=== PATIENT | male | born 1990 | race Caucasian/White ===

== ENCOUNTER 2016-12-05 06:45 | Emergency (ER) | payer BC ==
--- NOTE | 2016-12-05 08:12 | XR ---
EXAMINATION TYPE: XR chest 2V DATE OF EXAM: 12/05/2016 COMPARISON: Prior chest x-ray 12/19/2009 HISTORY: Cough and congestion TECHNIQUE: Frontal and lateral views of the chest are obtained on 3 views. FINDINGS: There is no focal air space opacity, pleural effusion, or pneumothorax seen. Ill-defined increased density over the upper left chest on the frontal view may be technical or related to the ch est wall. Old left-sided clavicular fracture is present. The cardiac silhouette size is within normal limits. The osseous structures are intact. IMPRESSION: Possible chest wall abnormality causing abnormal increased attenuation left upper chest. Additional findings above.
--- NOTE | 2016-12-05 08:46 | ED ---
General Adult HPI - General Chief complaint: Upper Respiratory Infection Stated complaint: Chest cold Time Seen by Provider: 12/05/16 07:51 Source: patient Mode of arrival: ambulatory Limitations: no limitations - History of Present Illness Initial comments: 26-year-old male presenting with a two-week history of cough. Patient states cough was initially dry and then progressed over the last 5 days to yellow- green sputum. He denies fever. Patient denies nausea vomiting diarrhea. Denies chest pain. Denies significant shortness of breath. Patient has also complained of a cold sore on his lower lip and a rash on his left thigh. Patient is otherwise healthy with no chronic medical problems. Denies rhinorrhea states he had a mild sore throat and bilateral ear pain as well - Related Data Previous Rx's Medication Instructions Recorded Clotrimazole [Clotrimazole 1%] 1 applic TOPICAL TID #30 ml 12/05/16 Doxycycline [Vibramycin] 100 mg PO Q12HR #28 capsule 12/05/16 Allergies Allergy/AdvReac Type Severity Reaction Status Date / Time cefaclor [From Ceclor] Allergy Rash/Hives Verified 12/05/16 07:55 Review of Systems ROS Statement: Those systems with pertinent positive or pertinent negative responses have been documented in the HPI. ROS Other: All systems not noted in ROS Statement are negative. 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 Organisms: MRSA Date of last positivie culture/infection: Back skin MDRO Source:: 2014 Past Surgical History: Appendectomy Past Anesthesia/Blood Transfusion Reactions: No Reported Reaction Past Psychological History: No Psychological Hx Reported Smoking Status: Never smoker Past Alcohol Use History: Occasional Past Drug Use History: None Reported - Past Family History Mother Family Medical History: Diabetes Mellitus General Exam Limitations: no limitations General appearance: alert, in no apparent distress Head exam: Present: atraumatic, normocephalic Eye exam: Present: normal appearance, PERRL ENT exam: Present: normal exam, mucous membranes moist Neck exam: Present: normal inspection Respiratory exam: Present: normal lung sounds bilaterally. Absent: respiratory distress, wheezes, rales Cardiovascular Exam: Present: regular rate, normal rhythm GI/Abdominal exam: Present: soft. Absent: distended, tenderness Back exam: Present: normal inspection Neurological exam: Present: alert, oriented X3 Psychiatric exam: Present: normal affect, normal mood Skin exam: Present: warm, rash (Patient has tinea corporis on his left lateral thigh, he also has a vesicular rash consistent with herpes on his lower lip.), vesicles Course Vital Signs 12/05/16 12/05/16 06:49 09:31 Temperature 98.0 F 98.4 F Pulse Rate 92 71 Respiratory 18 16 Rate Blood Pressure 141/88 142/93 O2 Sat by Pulse 97 98 Oximetry Medical Decision Making - Medical Decision Making 26-year-old male with a two-week history of cough which is nonproductive of sputum for the past 5 days. Patient is overall well-appearing on examination. He also complains of a cold sore and rash on his thigh. Lip exam consistent with herpes, rash on his thigh consistent with tinea. Patient has had no recent travel. Chest x-ray shows no acute infiltrate, there is a vaguely defined opacity in the left apex. Patient does have remote clavicle fracture. He is aware of these findings will follow-up with his primary care physician. Patient was treated for acute bronchitis. He is also given a prescription for clotrimazole for his tinea corporis. Disposition Clinical Impression: Bronchitis, Tinea corporis Disposition: HOME SELF-CARE Condition: Good Instructions: Tinea Corporis (ED), Upper Respiratory Infection (ED) Prescriptions: Clotrimazole [Clotrimazole 1%] 1 applic TOPICAL TID #30 ml Doxycycline [Vibramycin] 100 mg PO Q12HR #28 capsule Referrals: Mk Edmondson MD [Primary Care Provider] - 1-2 days
[2016-12-05 09:35] VITALS: BP 142/93; PULSE 71; RESP 16; TEMP 98.4
== END 2016-12-05 09:34 | disposition home or self-care (01) ==
LOC: EC 06:45
DX: J40 Bronchitis, not specified as acute or chronic (principal); B35.4 Tinea corporis
CPT/HCPCS: 71020; 99283

== ENCOUNTER → 2018-08-06 | Outpatient (CLI) | payer BC ==
--- NOTE | 2018-08-06 08:11 | US ---
EXAMINATION TYPE: US abdomen limited DATE OF EXAM: 08/06/2018 COMPARISON: NONE CLINICAL HISTORY: R74.8 elevated liver. Elevated liver enzymes EXAM MEASUREMENTS: Liver Length: 18.7 cm Gallbladder Wall: 0.2 cm CBD: 0.4 cm Right Kidney: 11.7 x 5.4 x 6.0 cm Pancreas: visualized portions wnl, limited by overlying midline bowel gas Liver: enlarged, attenuating, increased echogenicity with decreased visualization of vessels suggest karen of fatty infiltrate Gallbladder: wnl Evidence for sonographic Love's sign: no CBD: visualized portions wnl, limited by overlying bowel gas Right Kidney: wnl Visualized portion of pancreas shows no mass or ductal dilatation. Visualized liver is heterogeneousl y hyperechoic. No intrahepatic ductal dilatation is seen. Evaluation for focal masses is suboptimal d ue to the heterogeneity. Gallbladder is seen without shadowing mobile gallstones. Limited images righ t kidney show no gross hydronephrosis. IMPRESSION: Heterogeneous hyperechoic appearance of liver favors product of diffuse fatty infiltratio n, underlying hepatocellular disease is not excluded. Imaging guided random biopsy for tissue analysi s can be performed if desired.
== END | disposition home or self-care (01) ==
LOC: RADUSWWP 07:23
PROVIDERS: ATTEND Family Medicine
DX: R93.2 Abnormal findings on diagnostic imaging of liver and biliary tract (principal); R74.8 Abnormal levels of other serum enzymes
CPT/HCPCS: 76705

== ENCOUNTER → 2019-05-27 | Outpatient (CLI) | payer BC | LOC: LABWHC1 10:50 | PROVIDERS: ATTEND Nurse Practitioner Adult Health | DX: R19.7 Diarrhea, unspecified (principal) | CPT/HCPCS: 87338 ==

== ENCOUNTER → 2019-05-30 | Outpatient (CLI) | payer BC ==
--- NOTE | 2019-05-30 14:57 | CT ---
EXAMINATION TYPE: CT abdomen pelvis wo con DATE OF EXAM: 05/30/2019 COMPARISON: None HISTORY: 29-year-old male Bright red blood after bowel movements. CT DLP: 820.6 mGycm. Automated exposure control for dose reduction was used. TECHNIQUE: Contiguous axial scanning of the abdomen and pelvis without IV contrast. Coronal and sagit sue reconstructions performed. FINDINGS: Heart normal size without pericardial effusion. Lung bases clear without pleural effusion. Liver enlarged at 21.6 cm with low attenuation. Gallbladder, adrenal glands, spleen, and pancreas show no gross abnormality by noncontrast CT. Bilateral extrarenal pelves. No nephrolithiasis or hydronephrosis is seen. No dilated small bowel, free fluid, or free air. Scattered nonenlarged and borderline sized mesenteric lymph nodes measuring up to 7 mm probably react karen. Some prominent fluid filled small bowel loops throughout the mid and lower abdomen. Appendix not discretely identified. No secondary findings of acute appendicitis. Mild scattered stool burden. No pericolonic inflammatory change. Bladder is urine distended. No abnormal fluid collection in the pelvis or pelvic lymphadenopathy. Bones: Right L5 hemisacralization. Mild endplate spondylosis lower thoracic spine. IMPRESSION: 1. Hepatomegaly (21.67 m) with hepatic steatosis. 2. Prominent fluid-filled small bowel loops in the mid and lower abdomen may be transient but could represent enteritis or ileus. 3. Only mild scattered stool. No pericolonic inflammation seen. 4. Incidental total L5 hemisacralization.
== END | disposition home or self-care (01) ==
LOC: RADCTMAIN 14:18
PROVIDERS: ATTEND Family Medicine
DX: K76.0 Fatty (change of) liver, not elsewhere classified (principal); R16.0 Hepatomegaly, not elsewhere classified
CPT/HCPCS: 74176

== ENCOUNTER 2022-06-06 08:31 | Emergency (ER) | payer BC ==
[2022-06-06 08:52] VITALS: RESP 18
--- NOTE | 2022-06-06 09:45 | ED ---
General Adult HPI - General Chief complaint: Chest Pain Stated complaint: dizziness, chest pain, left arm numbness Time Seen by Provider: 06/06/22 08:58 Source: patient Mode of arrival: ambulatory - History of Present Illness Initial comments: Dictation was produced using [employer] dictation software. please excuse any grammatical, word or spelling errors. Chief Complaint: 32-year-old male presents emergency department for the 22nd episode of tinnitus, sharp chest pain and dizziness History of Present Illness: To 32-year-old male woke up very early this morning around 4 AM. Patient states that he gets at this early because he has to be at work at 5. Patient states that he got up when his gurney ready for work when all of a sudden he felt an intense episode of tinnitus followed by dizziness and paresthesias to the left arm. States it lasted for 20 seconds. Patient states that his symptoms immediately resolved. He went to the urgent care and ended up being redirected to the emergency department. Patient is asymptomatic at bedside. Patient has no medical problems. Does not take any medications on a regular basis. Sharp chest pain was located to his left anterior chest. The ROS documented in this emergency department record has been reviewed and confirmed by me. Those systems with pertinent positive or negative responses have been documented in the HPI. All other systems are other negative and/or noncontributory. PHYSICAL EXAM: General Impression: Alert and oriented x3, not in acute distress HEENT: Normocephalic atraumatic, extra-ocular movements intact, pupils equal and reactive to light bilaterally, mucous membranes moist. Cardiovascular: Heart regular rate and rhythm Chest: Able to complete full sentences, no retractions, no tachypnea Abdomen: abdomen soft, non-tender, non-distended, no organomegaly Musculoskeletal: Pulses present and equal in all extremities, no peripheral edema Motor: no focal deficits noted Neurological: CN II-XII grossly intact, no focal motor or sensory deficits noted Skin: Intact with no visualized rashes Psych: Normal affect and mood ED course: 32-year-old male presents emergency department for episode of ear ringing, dizziness, sharp chest pain and paresthesias to the left upper extr emity. As upon arrival are within acceptable limits. Physical examination is benign. Patient has no high-risk features. Nursing notes and chart review was performed EKG interpreted by me: Ventricular rate 86, sinus rhythm,. 149, QRS 105, QTc 384. No NC prolongation, no QTC prolongation, no ST or T-wave changes noted. Overall, this EKG is unremarkable Laboratory evaluation obtained. CBC, coag panel, what is unremarkable. Troponin is negative. Chest x-ray is nonacute. Patient observed in emergency department for 2 hours. Reevaluation at bedside 1040 and found to be stable medical condition. Patient has no high-risk features. Patient be discharged. Was pt. sent in by a medical professional or institution (TIERNEY Ibarra, REAL ESTATE LOAN PROCESSOR, urgent care, hospital, or care home...) When possible be specific @ -Urgent care Did you speak to anyone other than the patient for history (EMS, parent, family, police, friend...)? What history was obtained from this source @ -No Did you review nursing and triage notes (agree or disagree)? Why? @ -I reviewed and agree with nursing and triage notes Were old charts reviewed (outside hosp., previous admission, EMS record, old EKG, old radiological studies, urgent care reports/EKG's, care home records)? Report findings @ -No old charts were reviewed Differential Diagnosis (chest pain, altered mental status, abdominal pain women, abdominal pain men, vaginal bleeding, weakness, fever, dyspnea, syncope, headache, dizziness, GI bleed, back pain, seizure, CVA, palpatations, mental health)? @ -not applicable EKG interpreted by me (3pts min.). @ -As above X-rays interpreted by me (1pt min.). @ -See above CT interpreted by me (1pt min.). @ -None done U/S interpreted by me (1pt. min.). @ -None done What testing was considered but not performed or refused? (CT, X-rays, U/S, labs)? Why? @ -None What meds were considered but not given or refused? Why? @ -Aspirin was considered however patient's symptoms are atypical for ACS Did you discuss the management of the patient with other professionals (professionals i.e. TIERNEY Ibarra, REAL ESTATE LOAN PROCESSOR, lab, RT, psych nurse, health social work professor, director of career resources, teacher, accounts officer, pillowcase sewer)? Give summary @ -No Was smoking cessation discussed for >3mins.? @ -No Was critical care preformed (if so, how long)? @ -No Were there social determinants of health that impacted care today? How? (Homelessness, low income, unemployed, alcoholism, drug addiction, romero sportation, low edu. Level, literacy, decrease access to med. care, fci, rehab)? @ -No Was there de-escalation of care discussed even if they declined (Discuss DNR or withdrawal of care, Hospice)? DNR status @ -No What co-morbidities impacted this encounter? (DM, HTN, Smoking, COPD, CAD, Cancer, CVA, ARF, Chemo, Hep., AIDS, mental health diagnosis, sleep apnea, morbid obesity)? @ -None Was patient admitted / discharged? Hospital course, mention meds given and route, prescriptions, significant lab abnormalities, going to OR and other pertinent info. @ -hospital course Undiagnosed new problem with uncertain prognosis? @ -No Drug Therapy requiring intensive monitoring for toxicity (Heparin, Nitro, Insu huong, Cardizem)? @ -No Were any procedures done? @ -No Diagnosis/symptom? @ -default Acute, or Chronic, or Acute on Chronic? @ -default Uncomplicated (without systemic symptoms) or Complicated (systemic symptoms)? @ -default Side effects of treatment? @ -No Exacerbation, Progression, or Severe Exacerbation? @ -No Poses a threat to life or bodily function? How? (Chest pain, [place], [place], pneumonia, PE, COPD, DKA, ARF, appy, cholecystitis, CVA, Diverticulitis, Homicidal, Suicidal, threat to staff... and all critical care pts) @ -No - Related Data Home Medications Medication Instructions Recorded Confirmed No Known Home Medications 06/06/22 06/06/22 Allergies Allergy/AdvReac Type Severity Reaction Status Date / Time cefaclor [From Ceclor] Allergy Rash/Hives Verified 06/06/22 10:00 Review of Systems ROS Statement: Those systems with pertinent positive or pertinent negative responses have been documented in the HPI. ROS Other: All systems not noted in ROS Statement are negative. 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 Organisms: MRSA Date of last positivie culture/infection: Back skin MDRO Source:: 2014 Past Surgical History: Appendectomy Past Anesthesia/Blood Transfusion Reactions: No Reported Reaction Past Psychological History: No Psychological Hx Reported Smoking Status: Current some day smoker Past Alcohol Use History: Occasional Past Drug Use History: None Reported - Past Family History Mother Family Medical History: Diabetes Mellitus Course Vital Signs 06/06/22 06/06/22 08:50 09:49 Temperature 98.1 F Pulse Rate 88 76 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 ] Respiratory 18 18 Rate Blood Pressure 148/97 147/93 O2 Sat by Pulse 98 98 Oximetry Medical Decision Making - Lab Data Result diagrams: 06/06/22 10:06 06/06/22 10:06 Lab Results 06/06/22 06/06/22 06/06/22 Range/Units 10:06 10:06 10:06 WBC 6.1 (3.8-10.6) k/uL RBC 4.83 (4.30-5.90) m/uL Hgb 15.3 (13.0-17.5) gm/dL Hct 42.8 (39.0-53.0) % MCV 88.7 (80.0-100.0) fL MCH 31.6 (25.0-35.0) pg MCHC 35.7 (31.0-37.0) g/dL RDW 12.0 (11.5-15.5) % Plt Count 238 (150-450) k/uL MPV 8.1 Neutrophils % 59 % Lymphocytes % 32 % Monocytes % 6 % Eosinophils % 2 % Basophils % 1 % Neutrophils # 3.6 (1.3-7.7) k/uL Lymphocytes # 1.9 (1.0-4.8) k/uL Monocytes # 0.4 (0-1.0) k/uL Eosinophils # 0.1 (0-0.7) k/uL Basophils # 0.1 (0-0.2) k/uL PT 10.2 (9.0-12.0) sec INR 1.0 (<1.2) APTT 24.6 (22.0-30.0) sec Sodium 140 (137-145) mmol/L Potassium 4.1 (3.5-5.1) mmol/L Chloride 106 (98-107) mmol/L Carbon Dioxide 25 (22-30) mmol/L Anion Gap 9 mmol/L BUN 10 (9-20) mg/dL Creatinine 0.70 (0.66-1.25) mg/dL Est GFR (CKD-EPI)AfAm >90 (>60 ml/min/1.73 sqM) Est GFR (CKD-EPI)NonAf >90 (>60 ml/min/1.73 sqM) Glucose 92 (74-99) mg/dL Calcium 9.5 (8.4-10.2) mg/dL Magnesium 2.0 (1.6-2.3) mg/dL Total Bilirubin 0.4 (0.2-1.3) mg/dL AST 37 (17-59) U/L ALT 56 H (4-49) U/L Alkaline Phosphatase 59 (38-126) U/L Troponin I (0.000-0.034) ng/mL Total Protein 7.7 (6.3-8.2) g/dL Albumin 4.9 (3.5-5.0) g/dL 06/06/22 Range/Units 10:06 WBC (3.8-10.6) k/uL RBC (4.30-5.90) m/uL Hgb (13.0-17.5) gm/dL Hct (39.0-53.0) % MCV (80.0-100.0) fL MCH (25.0-35.0) pg MCHC (31.0-37.0) g/dL RDW (11.5-15.5) % Plt Count (150-450) k/uL MPV Neutrophils % % Lymphocytes % % Monocytes % % Eosinophils % % Basophils % % Neutrophils # (1.3-7.7) k/uL Lymphocytes # (1.0-4.8) k/uL Monocytes # (0-1.0) k/uL Eosinophils # (0-0.7) k/uL Basophils # (0-0.2) k/uL PT (9.0-12.0) sec INR (<1.2) APTT (22.0-30.0) sec Sodium (137-145) mmol/L Potassium (3.5-5.1) mmol/L Chloride (98-107) mmol/L Carbon Dioxide (22-30) mmol/L Anion Gap mmol/L BUN (9-20) mg/dL Creatinine (0.66-1.25) mg/dL Est GFR (CKD-EPI)AfAm (>60 ml/min/1.73 sqM) Est GFR (CKD-EPI)NonAf (>60 ml/min/1.73 sqM) Glucose (74-99) mg/dL Calcium (8.4-10.2) mg/dL Magnesium (1.6-2.3) mg/dL Total Bilirubin (0.2-1.3) mg/dL AST (17-59) U/L ALT (4-49) U/L Alkaline Phosphatase (38-126) U/L Troponin I <0.012 (0.000-0.034) ng/mL Total Protein (6.3-8.2) g/dL Albumin (3.5-5.0) g/dL Disposition Clinical Impression: Chest pain Disposition: HOME SELF-CARE Condition: Good Instructions (If sedation given, give patient instructions): Chest Pain (ED), Tinnitus (ED) Is patient prescribed a controlled substance at d/c from ED?: No Referrals: Mk Edmondson MD [Primary Care Provider] - 1-2 days Time of Disposition: 10:46
[2022-06-06 10:12] LABS: Basophils # (A) 0.1 k/uL (0-0.2); Basophils % (A) 1 %; Eosinophils # (A) 0.1 k/uL (0-0.7); Eosinophils % (A) 2 %; HCT 42.8 % (39.0-53.0); HGB 15.3 gm/dL (13.0-17.5); Lymphocytes # (A) 1.9 k/uL (1.0-4.8); Lymphocytes % (A) 32 %; MCH 31.6 pg (25.0-35.0); MCHC 35.7 g/dL (31.0-37.0); MCV 88.7 fL (80.0-100.0); Mean Platelet Volume 8.1; Monocytes # (A) 0.4 k/uL (0-1.0); Monocytes % (A) 6 %; Neutrophils # (A) 3.6 k/uL (1.3-7.7); Neutrophils % (A) 59 %; Platelet Count 238 k/uL (150-450); RBC 4.83 m/uL (4.30-5.90); WBC 6.1 k/uL (3.8-10.6)
[2022-06-06 10:22] LABS: Partial Thromboplastin Time 24.6 sec (22.0-30.0); Prothrombin Time 10.2 sec (9.0-12.0)
[2022-06-06 10:24] LABS: ALT 56 U/L (4-49); AST 37 U/L (17-59); African American GFR (CKD) >90 (>60 ml/min/1.73 sqM); Albumin 4.9 g/dL (3.5-5.0); Alkaline Phosphatase 59 U/L (38-126); Anion Gap 9 mmol/L; Blood Urea Nitrogen 10 mg/dL (9-20); Calcium 9.5 mg/dL (8.4-10.2); Carbon Dioxide 25 mmol/L (22-30); Chloride 106 mmol/L (98-107); Glucose 92 mg/dL (74-99); Non-African American GFR(CKD) >90 (>60 ml/min/1.73 sqM); Potassium 4.1 mmol/L (3.5-5.1); Sodium 140 mmol/L (137-145); Total Bilirubin 0.4 mg/dL (0.2-1.3); Total Protein 7.7 g/dL (6.3-8.2)
--- NOTE | 2022-06-06 10:27 | XR ---
EXAMINATION TYPE: XR chest 2V DATE OF EXAM: 06/06/2022 COMPARISON: 12/05/2016 TECHNIQUE: PA and lateral views submitted. HISTORY: Chest pain FINDINGS: The lungs are clear and there is no pneumothorax, pleural effusion, or focal pneumonia. Heart size normal and no overt failure. Osseous structures demonstrate hypertrophic and degenerative changes of the spine. Hypertrophic and degenerative change of the spine. IMPRESSION: 1. No acute process.
[2022-06-06 10:58] VITALS: BP 141/97; PULSE 77; TEMP 98.5
== END 2022-06-06 11:07 | disposition home or self-care (01) ==
LOC: EC 08:31
DX: R07.9 Chest pain, unspecified (principal); F17.200 Nicotine dependence, unspecified, uncomplicated; Z88.1 Allergy status to other antibiotic agents
CPT/HCPCS: 36415; 71046; 80053; 83735; 84484; 85025; 85610; 85730; 93005; 99285

== ENCOUNTER 2022-11-06 07:02 | Emergency (ER) | payer BC ==
[2022-11-06 07:22] VITALS: RESP 18
--- NOTE | 2022-11-06 09:04 | XR ---
EXAMINATION TYPE: XR knee complete RT DATE OF EXAM: 11/06/2022 COMPARISON: NONE HISTORY: 32-year-old male with injury and pain TECHNIQUE: 3 views FINDINGS: Small knee joint effusion. The mechanism appears intact. Mild anterior soft tissue swelling . No acute fracture, subluxation or dislocation seen. IMPRESSION: No acute osseous abnormality seen. There is a small knee joint effusion which may be reactive. If juan alberto n persists or concern for internal derangement, MRI can be performed.
--- NOTE | 2022-11-06 09:06 | ED ---
Lower Extremity Injury HPI - General Chief Complaint: Extremity Injury, Lower Stated Complaint: RIGHT LEG INJURY Time Seen by Provider: 11/06/22 08:46 Source: patient, RN notes reviewed Mode of arrival: ambulatory Limitations: no limitations - History of Present Illness Initial Comments: Patient is a pleasant 32-year-old male presenting to the emergency room with complaints of right knee stiffness, pain and swelling which began shortly after a failed attempt of a front flip on a trampoline yesterday evening. He reports that the time of the event his knee buckled and he heard a popping sensation. He denies any range of motion impairment but does state that range of motion especially extension is painful. He reports previous hockey injury with significant knee effusion but no previous fractures or structural damage to his knee. He denies any injury to any other extremity, head trauma or loss of consciousness. He has a past medical history significant for Erb's palsy. - Related Data Home Medications Medication Instructions Recorded Confirmed No Known Home Medications 06/06/22 06/06/22 Allergies Allergy/AdvReac Type Severity Reaction Status Date / Time cefaclor [From Ceclor] Allergy Rash/Hives Verified 11/06/22 07:22 Review of Systems ROS Statement: Those systems with pertinent positive or pertinent negative responses have been documented in the HPI. ROS Other: All systems not noted in ROS Statement are negative. 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 Organisms: MRSA Date of last positivie culture/infection: Back skin MDRO Source:: 2014 Past Surgical History: Appendectomy Past Anesthesia/Blood Transfusion Reactions: No Reported Reaction Past Psychological History: No Psychological Hx Reported Smoking Status: Current some day smoker Past Alcohol Use History: Occasional Past Drug Use History: None Reported - Past Family History Mother Family Medical History: Diabetes Mellitus General Exam Limitations: no limitations General appearance: alert, in no apparent distress Head exam: Present: atraumatic, normocephalic, normal inspection Eye exam: Present: normal appearance, PERRL, EOMI. Absent: scleral icterus, conjunctival injection, periorbital swelling ENT exam: Present: normal exam, mucous membranes moist Neck exam: Present: normal inspection, full ROM Respiratory exam: Absent: respiratory distress, accessory muscle use Cardiovascular Exam: Present: regular rate GI/Abdominal exam: Absent: distended Right Knee exam: Present: full ROM, tenderness, swelling, erythema, full knee extension. Absent: abrasion, laceration, ecchymosis, deformity, crepitus, dislocation Neurovascular tendon exam: Present: no vascular compromise Gait: observed and normal Back exam: Present: normal inspection, full ROM Neurological exam: Present: alert, oriented X3, CN II-XII intact Psychiatric exam: Present: normal affect, normal mood Skin exam: Present: warm, dry, intact, erythema (Mild erythema near her right knee). Absent: rash Course Vital Signs 11/06/22 11/06/22 07:20 10:07 Temperature 98.2 F 97.4 F L Pulse Rate 87 77 Respiratory 18 18 Rate Blood Pressure 156/97 138/96 O2 Sat by Pulse 99 97 Oximetry Medical Decision Making - Medical Decision Making Was pt. sent in by a medical professional or institution (, PA, WATCH ENGINEER, urgent care, hospital, or prison...) When possible be specific @ -No Did you speak to anyone other than the patient for history (EMS, parent, family, police, friend...)? What history was obtained from this source @ -No Did you review nursing and triage notes (agree or disagree)? Why? @ -I reviewed and agree with nursing and triage notes Were old charts reviewed (outside hosp., previous admission, EMS record, old EKG, old radiological studies, urgent care reports/EKG's, prison records)? Report findings @ -No old charts were reviewed Differential Diagnosis (chest pain, altered mental status, abdominal pain women, abdominal pain men, vaginal bleeding, weakness, fever, dyspnea, syncope, headache, dizziness, GI bleed, back pain, seizure, CVA, palpatations, mental health, musculoskeletal)? @ -Differential Musculoskeletal Muscular strain, contusion, ligament sprain, fracture, arthritis, septic arthritis, bursitis, cellulitis, muscle spasm, nerve compression, DVT, arterial occlusion, herpes zoster, electrolyte abnormality, tumor.... This is not meant to be in all inclusive list EKG interpreted by me (3pts min.). @ -None done X-rays interpreted by me (1pt min.). @ -X-ray right knee: Small effusion, no fracture or dislocation. CT interpreted by me (1pt min.). @ -None done U/S interpreted by me (1pt. min.). @ -None done What testing was considered but not performed or refused? (CT, X-rays, U/S, labs)? Why? @ -None What meds were considered but not given or refused? Why? @ -Analgesics offered and declined Did you discuss the management of the patient with other professionals (professionals i.e. , PA, WATCH ENGINEER, lab, RT, psych nurse, public health social worker, chemists, teacher, licensed mortgage loan officer, case advocate)? Give summary @ -No Was smoking cessation discussed for >3mins.? @ -No Was critical care preformed (if so, how long)? @ -No Were there social determinants of health that impacted care today? How? (Homelessness, low income, unemployed, alcoholism, drug addiction, transportation, low edu. Level, literacy, decrease access to med. care, detention, rehab)? @ -No Was there de-escalation of care discussed even if they declined (Discuss DNR or withdrawal of care, Hospice)? DNR status @ -No What co-morbidities impacted this encounter? (DM, HTN, Smoking, COPD, CAD, Cancer, CVA, ARF, Chemo, Hep., AIDS, mental health diagnosis, sleep apnea, morbid obesity)? @ -None Was patient admitted / discharged? Hospital course, mention meds given and route, prescriptions, significant lab abnormalities, going to OR and other pertinent info. @ -32-year-old male presenting to the emergency room complaints of right knee pain and swelling that began after hearing a pop sensation and landing awkwardly on his knee yesterday which improved after playing with his children. He reports painful but full range of motion. He denies any point tenderness. Will obtain x-ray of knee; he denies any analgesic needs. X-ray of right knee negative for acute osseous pathology small knee effusion noted. Recommend follow-up in 7-10 days if continued pain and swelling. Advised rest, ice, support with knee brace or Jax wrap along with elevation when possible. Advised [id number] Tylenol or Motrin as needed pain encouraged avoidance of high impact activity such as running and jumping until resolution of knee pain. Questions and concerns answered. Return parameters to the emergency room discussed. Will discharge home in stable condition with conservative management of right knee pain and follow-up with patient's primary care provider. Undiagnosed new problem with uncertain prognosis? @ -No Drug Therapy requiring intensive monitoring for toxicity (Heparin, Nitro, Insulin, Cardizem)? @ -No Were any procedures done? @ -No Diagnosis/symptom? @ -Right knee pain Acute, or Chronic, or Acute on Chronic? @ -Acute Uncomplicated (without systemic symptoms) or Complicated (systemic symptoms)? @ -Uncomplicated Side effects of treatment? @ -No Exacerbation, Progression, or Severe Exacerbation? @ -No Poses a threat to life or bodily function? How? (Chest pain, [place], [place], pneumonia, PE, COPD, DKA, ARF, appy, cholecystitis, CVA, Diverticulitis, Homicidal, Suicidal, threat to staff... and all critical care pts) @ -No Case discussed with Dr. John. - Radiology Data Radiology results: report reviewed, image reviewed Disposition Clinical Impression: Right knee sprain Disposition: HOME SELF-CARE Condition: Stable Instructions (If sedation given, give patient instructions): Knee Sprain (ED) Additional Instructions: Rest joint when possible. Apply ice for the first 48 hours as needed for pain after injury then may utilize heat as well. Utilize Tylenol or Motrin [id number] for pain as needed. Using a supportive brace or Jax wrap is encouraged. Elevate knee when possible. Please follow-up with your primary care provider. Repeat imaging may be needed if continued pain and swelling in 7-10 days. Please return to the Emergency Department if symptoms worsen or any other concerns. Is patient prescribed a controlled substance at d/c from ED?: No Referrals: Mk Edmondson MD [Primary Care Provider] - 1-2 days Time of Disposition: 09:41
[2022-11-06 10:09] VITALS: BP 138/96; PULSE 77; TEMP 97.4
== END 2022-11-06 10:08 | disposition home or self-care (01) ==
LOC: EC 07:02
DX: S83.91XA Sprain of unspecified site of right knee, initial encounter (principal); F17.200 Nicotine dependence, unspecified, uncomplicated; Z88.1 Allergy status to other antibiotic agents; X50.1XXA Overexertion from prolonged static or awkward postures, initial encounter; Y93.44 Activity, trampolining
CPT/HCPCS: 99283

== ENCOUNTER 2023-07-27 12:08 | Emergency (ER) | payer BC ==
[2023-07-27 12:45] VITALS: RESP 18
--- NOTE | 2023-07-27 13:18 | ED ---
Chest Pain HPI - General Chief Complaint: Chest Pain Stated Complaint: Chest Pains Time Seen by Provider: 07/27/23 12:39 Source: patient, RN notes reviewed, old records reviewed Mode of arrival: ambulatory Limitations: no limitations - History of Present Illness Initial Comments: This is a 33-year-old male with chest pain bilateral lower extremity pain tingling chest pain shortness of breath episodic chest pain. Symptoms are relatively persistent here in the emergency department patient having persistent chest pain here in the ER although improving. Mild nausea no vomiting no travel history no sick contacts no fevers cough or congestion. MD Complaint: chest pain, other (Shortness of breath) -: days(s) Onset: during rest, during exertion Pain Location: substernal, left chest Pain Radiation: none Severity: moderate Severity scale (1-10): 4 Quality: aching, heaviness Consistency: constant Improves With: nothing Worsens With: nothing Anginal Symptoms: nausea Other Symptoms: cough, palpitations Treatments Prior to Arrival: none - Related Data Previous Rx's Medication Instructions Recorded lisinopriL [Prinivil] 10 mg PO DAILY #30 tab 07/27/23 Allergies Allergy/AdvReac Type Severity Reaction Status Date / Time cefaclor [From Ceclor] Allergy Rash/Hives Verified 07/27/23 13:09 Review of Systems ROS Statement: Those systems with pertinent positive or pertinent negative responses have been documented in the HPI. ROS Other: All systems not noted in ROS Statement are negative. 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 Organisms: MRSA Date of last positivie culture/infection: Back skin MDRO Source:: 2014 Past Surgical History: Appendectomy Past Anesthesia/Blood Transfusion Reactions: No Reported Reaction Past Psychological History: No Psychological Hx Reported Smoking Status: Current some day smoker Past Alcohol Use History: Occasional Past Drug Use History: None Reported - Past Family History Mother Family Medical History: Diabetes Mellitus General Exam Limitations: no limitations General appearance: alert, in no apparent distress Head exam: Present: atraumatic, normocephalic, normal inspection Eye exam: Present: normal appearance, PERRL, EOMI. Absent: scleral icterus, conjunctival injection, periorbital swelling ENT exam: Present: normal exam, mucous membranes moist Neck exam: Present: normal inspection. Absent: tenderness, meningismus, lymphadenopathy Respiratory exam: Present: normal lung sounds bilaterally. Absent: respiratory distress, wheezes, rales, rhonchi, stridor Cardiovascular Exam: Present: regular rate, normal rhythm, normal heart sounds. Absent: systolic murmur, diastolic murmur, rubs, gallop, clicks GI/Abdominal exam: Present: soft, normal bowel sounds. Absent: distended, tenderness, guarding, rebound, rigid Extremities exam: Present: normal inspection, full ROM, normal capillary refill. Absent: tenderness, pedal edema, joint swelling, calf tenderness Back exam: Present: normal inspection Neurological exam: Present: alert, oriented X3, CN II-XII intact Psychiatric exam: Present: normal affect, normal mood Skin exam: Present: warm, dry, intact, normal color. Absent: rash Course Vital Signs 07/27/23 07/27/23 12:12 15:09 Temperature 98.3 F 97.6 F Pulse Rate 69 78 Respiratory 18 18 Rate Blood Pressure 181/109 143/102 O2 Sat by Pulse 99 99 Oximetry - Reevaluation(s) Reevaluation #1: Medical records reviewed Reevaluation #2: Patient symptoms unchanged Reevaluation #3: Patient informed of results questions answered Reevaluation #4: 08/02/23 22:32 Was pt. sent in by a medical professional or institution (, PA, ELECTRICAL ASSEMBLIES SUPERVISOR, urgent care, hospital, or senior living...) When possible be specific @ -no Did you speak to anyone other than the patient for history (EMS, parent, family, police, friend...)? What history was obtained from this source @ -no Did you review nursing and triage notes (agree or disagree)? Why? @ -agree Are old charts reviewed (outside hosp., previous admission, EMS record, old EKG, old radiological studies, urgent care reports/EKG's, senior living records)? Report findings @ -yes Differential Diagnosis (chest pain, altered mental status, abdominal pain women, abdominal pain men, vaginal bleeding, weakness, fever, dyspnea, syncope, headache, dizziness, GI bleed, back pain, seizure, CVA, palpatations, mental health, musculoskeletal)? @ -prior EKG interpreted by me (3pts min.). @ -yes X-rays interpreted by me (1pt min.). @ -yes negative for acute disease CT interpreted by me (1pt min.). @ -no U/S interpreted by me (1pt. min.). @ -no What testing was considered but not performed or refused? (CT, X-rays, U/S, labs)? Why? @ -none What meds were considered but not given or refused? Why? @ -none Did you discuss the management of the patient with other professionals (professionals i.e. DrCarley, PA, ELECTRICAL ASSEMBLIES SUPERVISOR, lab, RT, psych nurse, social human services assistants, pigment weigher, teacher, executive vice president and chief operating officer, case management director)? Give summary @ -no Was smoking cessation discussed for >3mins.? @ -no Was critical care preformed (if so, how long)? @ -no Were there social determinants of health that impacted care today? How? (Homelessness, low income, unemployed, alcoholism, drug addiction, transportation, low edu. Level, literacy, decrease access to med. care, [facility], rehab)? @ -none Was there de-escalation of care discussed even if they declined (Discuss DNR or withdrawal of care, Hospice)? DNR status @ -no What co-morbidities impacted this encounter? (DM, HTN, Smoking, COPD, CAD, Cancer, CVA, ARF, Chemo, Hep., AIDS, mental health diagnosis, sleep apnea, morbid obesity)? @ -none Was patient admitted / discharged? Hospital course, mention meds given and route, prescriptions, significant lab abnormalities, going to OR and other pertinent info. @ - 33 male presenting with chest pain. Atypical chest pain. No travel history or sick contacts. Pain is well-controlled here in the ER patient can be discharged home Discharge Undiagnosed new problem with uncertain prognosis? @ -no Drug Therapy requiring intensive monitoring for toxicity (Heparin, Nitro, Insulin, Cardizem)? @ -no Were any procedures done? @ -no Diagnosis/symptom? @ -Chest pain Acute, or Chronic, or Acute on Chronic? @ -Acute Uncomplicated (without systemic symptoms) or Complicated (systemic symptoms)? @ -Complicated Side effects of treatment? @ -no Exacerbation, Progression, or Severe Exacerbation? @ -exacerbation Poses a threat to life or bodily function? How? (Chest pain, [place], [place], pneumonia, PE, COPD, DKA, ARF, appy, cholecystitis, CVA, Diverticulitis, Homicidal, Suicidal, threat to staff... and all critical care pts) @ -yes with cause of chest pain Reevaluation #5: Differential Chest Pain: Stable Angina, Unstable Angina, STEMI, NSTEMI Aortic Dissection, Pneumothorax, Musculoskeletal, Esophageal Spasm GERD, Cholecystitis, Pancreatitis, Zoster, this is not meant to be an all-inclusive list. Chest Pain MDM - MDM 33 male presenting with chest pain. Atypical chest pain. No travel history or sick contacts. Pain is well-controlled here in the ER patient can be discharged home Disposition Clinical Impression: Atypical chest pain, Chest pain Disposition: HOME SELF-CARE Condition: Good Instructions (If sedation given, give patient instructions): Chest Pain (ED) Prescriptions: lisinopriL [Prinivil] 10 mg PO DAILY #30 tab Is patient prescribed a controlled substance at d/c from ED?: No Referrals: Mk Edmondson MD [Primary Care Provider] - 1-2 days Time of Disposition: 14:30
[2023-07-27 13:26] LABS: Basophils # (A) 0.1 k/uL (0-0.2); Basophils % (A) 1 %; Eosinophils # (A) 0.1 k/uL (0-0.7); Eosinophils % (A) 2 %; HCT 44.5 % (39.0-53.0); HGB 15.2 gm/dL (13.0-17.5); Lymphocytes # (A) 2.1 k/uL (1.0-4.8); Lymphocytes % (A) 32 %; MCH 31.9 pg (25.0-35.0); MCHC 34.1 g/dL (31.0-37.0); MCV 93.4 fL (80.0-100.0); Mean Platelet Volume 8.5; Monocytes # (A) 0.3 k/uL (0-1.0); Monocytes % (A) 4 %; Neutrophils % (A) 61 %; Platelet Count 194 k/uL (150-450); RBC 4.77 m/uL (4.30-5.90); RDW 11.6 % (11.5-15.5); WBC 6.6 k/uL (3.8-10.6)
[2023-07-27 13:37] LABS: ALT 63 U/L (4-49); AST 47 U/L (17-59); African American GFR (CKD) >90 (>60 ml/min/1.73 sqM); Albumin 4.9 g/dL (3.5-5.0); Alkaline Phosphatase 67 U/L (38-126); Anion Gap 9 mmol/L; Blood Urea Nitrogen 12 mg/dL (9-20); Calcium 9.6 mg/dL (8.4-10.2); Carbon Dioxide 23 mmol/L (22-30); Chloride 108 mmol/L (98-107); Glucose 109 mg/dL (74-99); Lipase 30 U/L (23-300); Non-African American GFR(CKD) >90 (>60 ml/min/1.73 sqM); Potassium 4.1 mmol/L (3.5-5.1); Sodium 140 mmol/L (137-145); Total Bilirubin 0.8 mg/dL (0.2-1.3); Total Protein 7.8 g/dL (6.3-8.2)
[2023-07-27 13:46] LABS: NT-Pro-B-Type Natriuretic Pept 26 pg/mL
[2023-07-27 13:47] LABS: Partial Thromboplastin Time 24.9 sec (22.0-30.0); Prothrombin Time 10.7 sec (10.0-12.5)
--- NOTE | 2023-07-27 13:52 | XR ---
EXAMINATION TYPE: XR chest 2V DATE OF EXAM: 07/27/2023 1:40 PM CLINICAL INDICATION:Male, 33 years old with history of Chest Pain; COMPARISON: Chest radiographs from 06/06/2022 TECHNIQUE: XR chest 2V Frontal and lateral views of the chest. FINDINGS: Lungs/Pleura: There is no evidence of pleural effusion, focal consolidation, or pneumothorax. Pulmonary vascularity: Unremarkable. Heart/mediastinum: Cardiomediastinal silhouette is unremarkable. Musculoskeletal: No acute osseous pathology. Other findings: None IMPRESSION: No acute cardiopulmonary disease/process.
[2023-07-27 15:30] VITALS: BP 143/102; PULSE 78; TEMP 97.6
== END 2023-07-27 15:10 | disposition home or self-care (01) ==
LOC: EC 12:08
DX: R07.89 Other chest pain (principal); F17.200 Nicotine dependence, unspecified, uncomplicated; Z88.1 Allergy status to other antibiotic agents
CPT/HCPCS: 36415; 71046; 80053; 83690; 83735; 83880; 84484; 85025; 85379; 85610; 85730; 93005; 99285

== ENCOUNTER → 2023-09-22 | Outpatient (CLI) | payer BC ==
--- NOTE | 2023-09-25 12:57 | MR ---
MRI CERVICAL SPINE: CLINICAL HISTORY: Neck pain, LUE radiculopathy. Cervical region radiculopathy. TECHNIQUE: Multiplanar, multisequence imaging of the cervical spine is performed without IV contrast. COMPARISON: None. FINDINGS: Sagittal images of the cervical spine show the craniocervical junction to appear within nor mal limits. The cervical and upper thoracic spinal cord is normal in course, caliber, and signal. V ertebral alignment is straightened. The vertebral body and intravertebral disk heights are normal. The bone marrow signal intensity is within normal limits. Axial images show C2-C3 level to appear within normal limits. Axial images at C3-C4 level shows broad-based posterior disc protrusion effacing anterior thecal sac and causing mild to moderate bilateral neural foraminal narrowing. Axial images at C4-C5 levels show broad-based posterior disc protrusion effacing the anterior thecal sac and causing moderate right and mild left-sided neural foraminal narrowing. Axial images at C5-C6 level shows broad-based posterior disc protrusion with slightly more prominent right paracentral/foraminal component effacing the anterior thecal sac and causing moderate to advanc ed left greater than right bilateral neural foraminal narrowing. Axial images at C6-C7 level shows central disc protrusion effacing anterior thecal sac and causing mi ld left greater than right bilateral neural foraminal narrowing Axial images at C7-T1 level appear within normal limits. IMPRESSION: Straightening of cervical spine with multilevel degenerative change as detailed above.
== END | disposition home or self-care (01) ==
LOC: RADMRIMAIN 12:57
PROVIDERS: ATTEND Family Medicine
DX: M47.22 Other spondylosis with radiculopathy, cervical region (principal)
CPT/HCPCS: 72141

== ENCOUNTER 2024-01-20 02:42 | Emergency (ER) | payer BC ==
[2024-01-20] MEDS ORDERED: cefTRIAXone 2 GM VIAL ONE (03:16)
[2024-01-20] MEDS ORDERED: KETOROLAC 15 MG/ML 1 ML VIAL ONE (03:17)
[2024-01-20] MEDS ORDERED: SODIUM CHLORIDE 0.9% 1,000 ML BAG ONE (03:42)
[2024-01-20] MEDS ORDERED: VANCOMYCIN 1,000 MG VIAL ONE (04:25)
[2024-01-20] MEDS ORDERED: VANCOMYCIN 500 MG VIAL ONE (04:25)
[2024-01-20] MEDS ORDERED: SODIUM CHLORIDE 0.9% 250 ML BAG ONE (04:25)
[2024-01-20] MEDS ORDERED: SULFAMETHOX-TMP 800-160MG 1 EACH TAB ONE (06:02)
[2024-01-20] MEDS ORDERED: AMOXIC-POT CLAV 875-125MG 1 EACH TAB ONE (06:02)
[2024-01-20] MEDS ORDERED: traMADol 50 MG STARTER PACK 3 TAB BTL ONE (06:57)
[2024-01-20] MEDS ORDERED: traMADol 50 MG TAB ONE (06:57)
--- NOTE | 2024-02-29 14:08 | XR ---
EXAM: XR Left Ankle Complete, 3 or More Views CLINICAL HISTORY: ankle quinn, infected ankle, no recent injury, when pt was 15 he suffered an injury to his distal tibia TECHNIQUE: Frontal, lateral and oblique views of the left ankle. COMPARISON: No relevant prior studies available. FINDINGS: Bones/joints: 3.7 mm lucency is seen at the medial talar dome. Calcification of the tibia and fibular syndesmosis. No acute fracture. No dislocation. Soft tissues: Soft tissue swelling is seen surrounding the ankle. IMPRESSION: 1. Soft tissue swelling without evidence of acute fracture. 2. Findings concerning for osteochondral lesion of the medial talar dome. Radiologist: Wolfgang Whitaker MD Electronically Signed: 01/20/24 07:00 Study first marked ready to read at 04:13, study last marked ready to read at 04:13, initial results transmitted at 07:00 [facility]
== END 2024-01-20 07:01 | disposition home or self-care (01) ==
LOC: EC 02:42
DX: S93.402A Sprain of unspecified ligament of left ankle, initial encounter (principal); X58.XXXA Exposure to other specified factors, initial encounter
CPT/HCPCS: 87040; 73610; 99283; 96365; 96366; 96361; 96375 ×2; J3370 ×2; J0696; J1885

== ENCOUNTER 2024-06-24 08:43 | Observation (INO) | payer BC ==
[2024-06-24 08:49] VITALS: TEMP 98.3
--- NOTE | 2024-06-24 09:08 | ED ---
Chest Pain HPI - General Chief Complaint: Chest Pain Stated Complaint: chest pain L arm numbness Time Seen by Provider: 06/24/24 09:02 Source: patient, RN notes reviewed Mode of arrival: ambulatory Limitations: no limitations - History of Present Illness Initial Comments: Patient is a 34-year-old male presented to ER for evaluation of chest pain. Patient reports he woke up this morning with a tight chest discomfort. He states he will have episodes of chest tightness that last a couple of seconds and then he returns to a baseline of 4 out of 10 chest discomfort. He describes this as tight nature. Patient also reports numbness to his left upper extremity. He denies any radiation to his back or neck. Patient does report a history of hypertension but is not taking any medications at this time. He states he was on a medication in the past but is unclear of which one as it has been so long. Patient states he was seen by PCP this morning for evaluation of this chest pain and found to be hypertensive 170s/100. Patient was subsequently sent to the ER for evaluation. Patient does admit to dizziness and intermittent headaches over the past couple of weeks. He denies any current dizziness or lightheadedness. Patient denies any fevers, cough, congestion, nausea, vomiting, abdominal pain, any other complaints. Patient denies any history of FL or stent placement. 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 No other significant past medical history. - Related Data Home Medications Medication Instructions Recorded Confirmed No Known Home Medications 06/24/24 06/24/24 Allergies Allergy/AdvReac Type Severity Reaction Status Date / Time cefaclor [From [facility]] Allergy Rash/Hives Verified 06/24/24 10:05 Review of Systems ROS Statement: Those systems with pertinent positive or pertinent negative responses have been documented in the HPI. ROS Other: All systems not noted in ROS Statement are negative. EKG Findings - EKG Comments: EKG Findings:: EKG taken at 8: 56 showing a sinus rhythm. No ST segment elevations or depressions. No T wave abnormalities. Ventricular rate 72, OK interval 144, QRS duration 112, QT/QTc 354/379. 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 Any Multi-Drug Resistant Organisms: MRSA Date of last positivie culture/infection: Back skin MDRO Source:: 2014 Past Surgical History: Appendectomy Additional Past Surgical History / Comment(s): vasectomy, Past Anesthesia/Blood Transfusion Reactions: No Reported Reaction Past Psychological History: No Psychological Hx Reported Smoking Status: Current some day smoker Past Alcohol Use History: Occasional Past Drug Use History: Marijuana - Past Family History Mother Family Medical History: Diabetes Mellitus General Exam Limitations: no limitations General appearance: alert, in no apparent distress Respiratory exam: Present: normal lung sounds bilaterally. Absent: respiratory distress, wheezes, rales, rhonchi, stridor Cardiovascular Exam: Present: regular rate, normal rhythm, normal heart sounds. Absent: systolic murmur, diastolic murmur, rubs, gallop, clicks Extremities exam: Present: normal inspection, full ROM, normal capillary refill. Absent: tenderness, pedal edema, joint swelling, calf tenderness Neurological exam: Present: alert, oriented X3, CN II-XII intact Skin exam: Present: warm, dry, intact, normal color. Absent: rash Course Vital Signs 06/24/24 06/24/24 06/24/24 08:45 08:52 08:57 Temperature 98.3 F Pulse Rate 79 80 Pulse Rate [ 78 Credentialing Coordinator ] Respiratory 18 16 Rate Blood Pressure 192/113 160/112 O2 Sat by Pulse 99 Oximetry 06/24/24 06/24/24 06/24/24 09:00 09:30 10:00 Temperature Pulse Rate 78 78 Pulse Rate [ Credentialing Coordinator ] Respiratory 8 L 19 Rate Blood Pressure 160/112 144/105 158/103 O2 Sat by Pulse 97 Oximetry 06/24/24 06/24/24 06/24/24 10:30 10:53 11:00 Temperature Pulse Rate 75 77 79 Pulse Rate [ Credentialing Coordinator ] Respiratory 10 L 18 15 Rate Blood Pressure 144/100 144/100 139/98 O2 Sat by Pulse 97 100 97 Oximetry 06/24/24 06/24/24 06/24/24 11:27 11:30 12:00 Temperature Pulse Rate 79 75 75 Pulse Rate [ Credentialing Coordinator ] Respiratory 18 18 16 Rate Blood Pressure 133/79 133/97 140/104 O2 Sat by Pulse 96 97 96 Oximetry 06/24/24 06/24/24 06/24/24 12:30 13:00 13:30 Temperature Pulse Rate 69 70 75 Pulse Rate [ Credentialing Coordinator ] Respiratory 16 18 Rate Blood Pressure 130/91 146/98 O2 Sat by Pulse 99 Oximetry 06/24/24 14:00 Temperature Pulse Rate 80 Pulse Rate [ Credentialing Coordinator ] Respiratory 18 Rate Blood Pressure 130/104 O2 Sat by Pulse Oximetry - Reevaluation(s) Reevaluation #1: 06/24/24 11:08 Patient reevaluated. Patient reporting improvement of left arm numbness. Vital signs stable. Blood pressure improved 139/90. 06/24/24 14:52 Case discussed with sound physician, , for admission. Chest Pain MDM - MDM Was pt. sent in by a medical professional or institution (, PA, CORPORATE DIRECTOR, urgent care, hospital, or snf...) When possible be specific @ -Patient sent from PCP, Dr. Edmondson, for evaluation of chest pain and hypertension. Did you speak to anyone other than the patient for history (EMS, parent, family, police, friend...)? What history was obtained from this source @ -No Did you review nursing and triage notes (agree or disagree)? Why? @ -I reviewed and agree with nursing and triage notes Were old charts reviewed (outside hosp., previous admission, EMS record, old EKG, old radiological studies, urgent care reports/EKG's, snf records)? Report findings @ -No old charts were reviewed Differential Diagnosis (chest pain, altered mental status, abdominal pain women, abdominal pain men, vaginal bleeding, weakness, fever, dyspnea, syncope, headache, dizziness, GI bleed, back pain, seizure, CVA, palpatations, mental health, musculoskeletal)? @ -Differential Chest Pain:Stable Angina, Unstable Angina, STEMI, NSTEMI Aortic Dissection, Pneumothorax, Musculoskeletal, Esophageal Spasm GERD, Cholecystitis, Pancreatitis, Zoster, this is not meant to be an all-inclusive list. EKG interpreted by me (3pts min.). @ -As above X-rays interpreted by me (1pt min.). @ -CXR interpreted me negative for focal consolidations, pneumothorax or pleural effusions. CT interpreted by me (1pt min.). @ -None done U/S interpreted by me (1pt. min.). @ -None done What testing was considered but not performed or refused? (CT, X-rays, U/S, labs)? Why? @ -None What meds were considered but not given or refused? Why? @ -None Did you discuss the management of the patient with other professionals (professionals i.e. DrCarley, PA, CORPORATE DIRECTOR, lab, RT, psych nurse, clinical social worker, housing relocation, teacher, national service officer, showcase trimmer)? Give summary @ -Yes, case discussed with ruby physician, Dr. Clarke, for admission. Was smoking cessation discussed for >3mins.? @ -No Was critical care preformed (if so, how long)? @ -No Were there social determinants of health that impacted care today? How? (Homelessness, low income, unemployed, alcoholism, drug addiction, transportation, low edu. Level, literacy, decrease access to med. care, care home, rehab)? @ -No Was there de-escalation of care discussed even if they declined (Discuss DNR or withdrawal of care, Hospice)? DNR status @ -No What co-morbidities impacted this encounter? (DM, HTN, Smoking, COPD, CAD, Cancer, CVA, ARF, Chemo, Hep., AIDS, mental health diagnosis, sleep apnea, morbid obesity)? @ -HTN Was patient admitted / discharged? Hospital course, mention meds given and route, prescriptions, significant lab abnormalities, going to OR and other pertinent info. @ -Admitted. 34 old male presented the ER for evaluation of hypertension and chest pain. Upon examination, patient resting comfortably in exam room no signs of acute distress. Patient hypertensive at 192/113 vitals otherwise within acceptable limits. Exam benign. CBC unremarkable. Troponin x 2 negative. D- dimer 0.26. Given patient's description of discomfort CT chest was obtained to rule out aortic abnormality. This is negative for acute process. Patient given 20 mg of labetalol with improvement of blood pressure to 130 systolic over 90s. EKG showing a sinus rhythm. Chest x-ray negative. Heart score 3. Admission was considered at that time for cardiology consult and blood pressure control. This was discussed with ruby physician, Dr. Clarke. Cardiology on consult. Patient agreeable for admission. Case discussed with ED attending, Dr. Hartman. Undiagnosed new problem with uncertain prognosis? @ -No Drug Therapy requiring intensive monitoring for toxicity (Heparin, Nitro, Insulin, Cardizem)? @ -No Were any procedures done? @ -No Diagnosis/symptom? @ -Hypertension/chest pain Acute, or Chronic, or Acute on Chronic? @ -Acute Uncomplicated (without systemic symptoms) or Complicated (systemic symptoms)? @ -Complicated Side effects of treatment? @ -No Exacerbation, Progression, or Severe Exacerbation? @ -No Poses a threat to life or bodily function? How? (Chest pain, [place], FL, pneumonia, PE, COPD, DKA, ARF, appy, cholecystitis, CVA, Diverticulitis, Homicidal, Suicidal, threat to staff... and all critical care pts) @ -Yes, chest pain cannot rule out ACS which can lead to lethal cardiac arrhythmias. Disposition Clinical Impression: Atypical chest pain, Hypertension Disposition: HOME SELF-CARE Condition: Stable Instructions (If sedation given, give patient instructions): Chest Pain (ED), Hypertension (ED) Additional Instructions: Follow-up with PCP in the next 1 to 2 days for reevaluation. Return to the ER for any new or worsening concerns. Is patient prescribed a controlled substance at d/c from ED?: No Referrals: Mk Edmondson MD [Primary Care Provider] - 1-2 days Time of Disposition: 13:50
[2024-06-24 09:18] LABS: Basophils % (A) 1 %; Eosinophils # (A) 0.1 k/uL (0-0.7); Eosinophils % (A) 1 %; HCT 45.4 % (39.0-53.0); HGB 15.8 gm/dL (13.0-17.5); Lymphocytes # (A) 2.5 k/uL (1.0-4.8); Lymphocytes % (A) 40 %; MCH 31.5 pg (25.0-35.0); MCHC 34.8 g/dL (31.0-37.0); MCV 90.4 fL (80.0-100.0); Mean Platelet Volume 7.9; Monocytes # (A) 0.3 k/uL (0-1.0); Monocytes % (A) 5 %; Neutrophils # (A) 3.3 k/uL (1.3-7.7); Neutrophils % (A) 52 %; Platelet Count 233 k/uL (150-450); RBC 5.02 m/uL (4.30-5.90); RDW 11.7 % (11.5-15.5); WBC 6.4 k/uL (3.8-10.6)
--- NOTE | 2024-06-24 09:26 | XR ---
EXAMINATION TYPE: XR chest 2V DATE OF EXAM: 06/24/2024 9:17 AM COMPARISON: Chest radiographs from 07/27/2023 TECHNIQUE: XR chest 2V Frontal and lateral views of the chest. CLINICAL INDICATION:Male, 34 years old with history of Chest Pain; FINDINGS: Lungs/Pleura: There is no evidence of pleural effusion, focal consolidation, or pneumothorax. Pulmonary vascularity: Unremarkable. Heart/mediastinum: Cardiomediastinal silhouette is unremarkable. Musculoskeletal: No acute osseous pathology. IMPRESSION: No acute cardiopulmonary disease/process. [facility], , 06/24/2024 9:24 AM
[2024-06-24 09:35] LABS: INR 0.9 (<1.2); Partial Thromboplastin Time 22.8 sec (22.0-30.0); Prothrombin Time 10.6 sec (10.0-12.5)
[2024-06-24] MEDS: LABETALOL 5 MG/ML VIAL MDV IVP STA (09:36)
[2024-06-24 11:07] LABS: ALT 64 U/L (4-49); African American GFR (CKD) >90 (>60 ml/min/1.73 sqM); Anion Gap 17 mmol/L; Blood Urea Nitrogen 10 mg/dL (9-20); Carbon Dioxide 18 mmol/L (22-30); Chloride 104 mmol/L (98-107); Glucose 93 mg/dL (74-99); Non-African American GFR(CKD) >90 (>60 ml/min/1.73 sqM); Sodium 139 mmol/L (137-145); Total Bilirubin 0.8 mg/dL (0.2-1.3)
[2024-06-24 11:11] LABS: Magnesium 1.9 mg/dL (1.6-2.3); Potassium 4.5 mmol/L (3.5-5.1)
[2024-06-24 11:12] LABS: AST 51 U/L (17-59); Albumin 4.9 g/dL (3.5-5.0); Alkaline Phosphatase 68 U/L (38-126); Total Protein 8.1 g/dL (6.3-8.2)
--- NOTE | 2024-06-24 12:11 | CT ---
EXAMINATION TYPE: CT chest angio for PE DATE OF EXAM: 06/24/2024 11:55 AM COMPARISON: 06/24/2024 CLINICAL INDICATION: Male, 34 years old with history of hypertension chest pain, CHEST PAIN, TECHNIQUE: Contiguous axial scanning of the chest performed with IV Contrast, patient injected with 6 3 mL of Isovue 370. Coronal and sagittal MIP reconstructions performed. CT DLP: 396.7 mGycm, Automated exposure control for dose reduction was used. FINDINGS: Heart normal size without pericardial effusion. No flattening of the interventricular septum or reflu x of contrast into the hepatic veins. Aorta normal caliber with bovine configuration to the aortic arch. Scattered nonenlarged mediastinal lymph nodes are present. No thoracic lymphadenopathy by CT size cri teria. Borderline suboptimal contrast bolus. No definite pulmonary embolus is seen. Mild diffuse bronchial wall thickening. Some strandy atelectasis at the right lung base. Otherwise, n o consolidation or pleural effusion. Some low-attenuation of the hepatic parenchyma may reflect fatty infiltration. Bones: No osseous destructive process. IMPRESSION: 1. SLIGHTLY LIMITED EXAM BUT WITHOUT PULMONARY EMBOLUS SEEN. 2. MILD BRONCHIAL WALL THICKENING COULD REFLECT BRONCHITIS OR ASTHMA 3. THERE MAY BE UNDERLYING HEPATIC STEATOSIS. [facility], Workstation: [id number], 06/24/2024 12:09 PM
[2024-06-24] MEDS ORDERED: ACETAMINOPHEN TAB 325 MG TAB PO PRN (14:48)
[2024-06-24] MEDS ORDERED: NALOXONE 0.4 MG/ML 1 ML VIAL IV PRN (14:48)
[2024-06-24] MEDS: SODIUM CHLORIDE 0.9% 1,000 ML IV SCH (14:54)
--- NOTE | 2024-06-24 15:29 | P.HPIM ---
History of Present Illness H&P Date: 06/24/24 Patient is a 34-year-old male with past medical history of Erbs palsy, hypertension not on medications, who presented to the ER for evaluation of chest pain that he describes as chest tightness. He has been having episodes like that in the past lasting seconds/minutes. He also has associated diaphoresis and redness of the neck. Those episodes are usually associated with left upper extremity numbness. He was diagnosed with hypertension he says 4 years ago, was put on a blood pressure medication that he could not tolerate and stopped. He does have family history of diabetes, heart disease, hypertension on his father side, no young heart attacks. Although, his mother had a stroke in her 40s. He quit smoking years ago, sometimes has marijuana Gummies, no other drug use, sometimes has couple beers. He was sent to the ER from his primary care physician after he was found that hi s BP was in 170s over 100s. ER course: Show blood pressure 192/114, patient was given labetalol as needed, BP improved to 140s, afebrile, heart rate in 70s, satting well on room air. Lab work showed unremarkable CBC, no erythrocytosis, unremarkable electrolytes, mildly elevated ALT, present and previous lab work. Troponin negative. CTA chest showed no PE, mild bronchial wall thickening, possible underlying hepatic steatosis. EKG with sinus rhythm, normal QTc, no ST elevation ER visit on 06/06/2022 showed BP of 140/97. At that time he presented with tinnitus, chest pain, dizziness. ER visit 11/06/2022. BP 156/97 ER visit 07/27/2023 initial BP 181/109, repeat 143/102 Pertinent positives and negatives as discussed in HPI, a complete review of systems was performed and all other systems are negative. Patient seen and examined at bedside. Vital signs reviewed General: nontoxic, no distress, appears at stated age Derm: warm, dry Head: atraumatic, normocephalic, symmetric Eyes: EOMI, no lid lag, anicteric sclera, pupils equal round reactive to light ENT: Nose and ears atraumatic Neck: No thyromegaly, supple Mouth: no lip lesion, mucus membranes moist Cardiovascular: S1S2 reg, no murmur, no edema Lungs: clear to auscultation bilateral, no rhonchi, no rales, no wheeze, no accessory muscle use Abdominal: soft, nontender to palpation, no guarding, no appreciable organomegaly Ext: no gross muscle atrophy, muscle strength muscle strength 5 out of 5 in all 4 extremities, no contractures Neuro: Erbs palsy, no acute changes Psych: Alert, oriented, appropriate affect Assessment/Plan: Hypertension Hypertensive urgency -Will check TSH, UA, A1c, lipid panel, renin, aldosteron -Urinalysis, urine toxicology, plasma metanephrine -Echo, cardiology -Start Procardia The patient is admitted with an anticipated [greater] than 2 midnight stay as [inpatient/observation] status for evaluation of hypertensive urgency, chest pain. CODE STATUS:full DVT prophylaxis: Lovenox Anticipated discharge date: Pending clinical course Anticipated discharge place: Likely home A total of 40 minutes was spent on the care of this complex patient more than 50% of the time was spent in counseling and care coordination. 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 Any Multi-Drug Resistant Organisms: MRSA Date of last positivie culture/infection: Back skin MDRO Source:: 2014 Past Surgical History: Appendectomy Additional Past Surgical History / Comment(s): vasectomy, Past Anesthesia/Blood Transfusion Reactions: No Reported Reaction Past Psychological History: No Psychological Hx Reported Smoking Status: Current some day smoker Past Alcohol Use History: Occasional Past Drug Use History: Marijuana - Past Family History Mother Family Medical History: Diabetes Mellitus Medications and Allergies Home Medications Medication Instructions Recorded Confirmed Type No Known Home Medications 06/24/24 06/24/24 History Allergies Allergy/AdvReac Type Severity Reaction Status Date / Time [facility] [[facility] Allergy Rash/Hives Verified 06/24/24 10:05 Physical Exam Vitals: Vital Signs Temp Pulse Pulse Resp BP Pulse Ox 06/24/24 14:00 80 18 130/104 06/24/24 13:30 75 06/24/24 13:00 70 18 146/98 06/24/24 12:30 69 16 130/91 99 06/24/24 12:00 75 16 140/104 96 06/24/24 11:30 75 18 133/97 97 06/24/24 11:27 79 18 133/79 96 06/24/24 11:00 79 15 139/98 97 06/24/24 10:53 77 18 144/100 100 06/24/24 10:30 75 10 L 144/100 97 06/24/24 10:00 158/103 06/24/24 09:30 78 19 144/105 97 06/24/24 09:00 78 8 L 160/112 06/24/24 08:57 80 16 160/112 06/24/24 08:52 78 06/24/24 08:45 98.3 F 79 18 192/113 99 Intake and Output 06/24/24 06/24/24 06/24/24 06:59 14:59 22:59 Other: Weight 87.543 kg Results CBC & Chem 7: 06/24/24 09:05 06/24/24 09:05 Labs: Abnormal Lab Results - Last 24 Hours (Table) 06/24/24 Range/Units 09:05 Carbon Dioxide 18 L (22-30) mmol/L Creatinine 0.63 L (0.66-1.25) mg/dL ALT 64 H (4-49) U/L
[2024-06-24 15:53] LABS: Appearance,Urine Clear (Clear); Bilirubin,Urine Negative (Negative); Blood,Urine Negative (Negative); Color,Urine Colorless; Glucose,Urine (UA) Negative (Negative); Ketones,Urine Negative (Negative); Leukocyte Esterase,Urine Negative (Negative); Nitrite,Urine Negative (Negative); Protein,Urine Negative (Negative); Specific Gravity,Urine 1.045 (1.001-1.035); Urobilinogen,Urine <2.0 mg/dL (<2.0)
[2024-06-24 16:02] LABS: African American GFR (CKD) >90 (>60 ml/min/1.73 sqM); Anion Gap 14 mmol/L; Blood Urea Nitrogen 8 mg/dL (9-20); Calcium 10.2 mg/dL (8.4-10.2); Carbon Dioxide 22 mmol/L (22-30); Chloride 103 mmol/L (98-107); Glucose 108 mg/dL (74-99); Non-African American GFR(CKD) >90 (>60 ml/min/1.73 sqM); Potassium 3.7 mmol/L (3.5-5.1); Sodium 139 mmol/L (137-145)
[2024-06-24 16:04] LABS: Amphetamine Screen,Urine Not Detected (NotDetected); Barbiturate Screen,Urine Not Detected (NotDetected); Benzodiazepines Screen,Urine Not Detected (NotDetected); Cocaine Screen,Urine Not Detected (NotDetected); Methadone Screen, Urine Not Detected (NotDetected); Opiate Screen,Urine Not Detected (NotDetected); Oxycodone Screen, Urine Not Detected (NotDetected); Phencyclidine Screen,Urine Not Detected (NotDetected); Tricyclic Antidepressant,Urine Not Detected (NotDetected); Urn Cannabinoid Scrn Not Detected (NotDetected)
[2024-06-24 17:16] LABS: T4, Free (Free Thyroxine) 1.08 ng/dL (0.78-2.19)
[2024-06-25 04:18] LABS: LDL Cholesterol,Calculated 70.2 mg/dL (0.0-131.0)
[2024-06-25 08:07] VITALS: RESP 16
[2024-06-25 08:45] LABS: African American GFR (CKD) >90 (>60 ml/min/1.73 sqM); Anion Gap 13 mmol/L; Blood Urea Nitrogen 9 mg/dL (9-20); Calcium 9.7 mg/dL (8.4-10.2); Carbon Dioxide 25 mmol/L (22-30); Chloride 102 mmol/L (98-107); Glucose 108 mg/dL (74-99); Non-African American GFR(CKD) >90 (>60 ml/min/1.73 sqM); Potassium 3.9 mmol/L (3.5-5.1); Sodium 140 mmol/L (137-145)
[2024-06-25] MEDS ORDERED: METOPROLOL SUCCINATE (ER) 25 MG TAB.ER.24H PO SCH (09:15)
[2024-06-25] MEDS: amLODIPine 5 MG TAB PO SCH (10:01)
--- NOTE | 2024-06-25 10:52 | P.CRDCN ---
History of Present Illness Consult date: 06/25/24 History of present illness: - . 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 He has a known diagnosis of hypertension and was prescribed medications by his PCP but he has not taken any since he had some side effects. He came into the hospital complaining of chest tightness. These pains last a few seconds and come on spontaneously and are relieved in about 60 seconds to sometimes up to 1 minute. They occur randomly no relation to physical activity. He was also found to have elevated blood pressure that was quite high on arrival but it has improved a lot. Initial blood pressure was 192/114. He is resting comfortably without symptoms at this time. He does not smoke but drinks alcohol on a regular basis and also uses marijuana Gummies. It is unclear if he had a previous workup for secondary causes of hypertension because he was seen by his PCP placed on medications as well. He is asymptomatic at the time of my evaluation. RELEVANT PAST MEDICAL HISTORY: Hypertension was on medications stopped taking them.. MEDICATIONS: None ALLERGIES: Cefaclor. REVIEW OF SYSTEMS: Unremarkable for any fever or chills genitourinary symptoms hematemesis melena etc. No chest pain at this time. PHYSICIAL EXAM: Vitals are stable blood pressure was 130/70. No JVD no carotid bruit S1-S2 heard normally no significant murmurs lungs are clear abdomen is soft nontender lower extremities reveal normal pulses no edema Central nervous system is normal. Laboratory data suggested EKG is unremarkable and troponin levels are normal. IMPRESSION: 1. Accelerated hypertension now controlled. 2. Atypical chest pain. 3. Noncompliance with medications. 4.. 5.. RECOMMENDATIONS: I am recommending that will use a combination of amlodipine 5 mg and metoprolol tartrate 50 mg in the morning and 25 mg in the evening and optimize BP control. Thyroid functions were slightly abnormal and patient was slightly tachycardic but TSH is actually mildly elevated but free T4 is normal. We will follow this as an outpatient. Once his blood pressure control is optimized and he is doing well I will see him in the office in 2 weeks and perform stress test as an outpatient. I have advised him to cut down on the alcohol intake with no regular alcohol daily and to have no more than 2 beers at a time. I explained to him that alcohol can also be a significant contributing factor for uncontrolled hypertension although he should be taking his medications regularly which he has not. Advised to let me know if he has any medication side effects but so far he is doing well. I will obtain echocardiogram to assess LV function and look for any LVH as well. 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 Any Multi-Drug Resistant Organisms: MRSA Date of last positivie culture/infection: Back skin MDRO Source:: 2014 Past Surgical History: Appendectomy Additional Past Surgical History / Comment(s): vasectomy, Past Anesthesia/Blood Transfusion Reactions: No Reported Reaction Past Psychological History: No Psychological Hx Reported Smoking Status: Current some day smoker Past Alcohol Use History: Occasional Past Drug Use History: Marijuana - Past Family History Mother Family Medical History: Diabetes Mellitus Medications and Allergies Home Medications Medication Instructions Recorded Confirmed Type No Known Home Medications 06/24/24 06/24/24 History Allergies Allergy/AdvReac Type Severity Reaction Status Date / Time [facility] [[facility]] Allergy Rash/Hives Verified 06/24/24 10:05 Physical Exam Vitals: Vital Signs Pulse Resp BP Pulse Ox 06/25/24 09:59 96 16 133/92 06/25/24 08:06 100 16 123/84 06/25/24 06:23 107 H 18 126/80 99 06/25/24 03:12 102 H 16 123/72 98 06/24/24 22:43 69 16 113/76 98 06/24/24 15:38 86 18 150/106 99 06/24/24 14:00 80 18 130/104 06/24/24 13:30 75 06/24/24 13:00 70 18 146/98 06/24/24 12:30 69 16 130/91 99 06/24/24 12:00 75 16 140/104 96 06/24/24 11:30 75 18 133/97 97 06/24/24 11:27 79 18 133/79 96 06/24/24 11:00 79 15 139/98 97 06/24/24 10:53 77 18 144/100 100 Results 06/24/24 09:05 06/25/24 07:36 Cardiac Enzymes 06/24/24 06/24/24 06/24/24 Range/Units 09:05 09:05 12:36 AST 51 (17-59) U/L Troponin I <0.012 <0.012 (0.000-0.034) ng/mL Lipids 06/24/24 Range/Units 15:38 Triglycerides 339.00 H (0.00-149.00) mg/dL Cholesterol 184.00 (0.00-200.00) mg/dL HDL Cholesterol 46.00 (40.00-60.00) mg/dL Cholesterol/HDL Ratio 4.00 Ratio Comprehensive Metabolic Panel 06/24/24 06/24/24 06/25/24 Range/Units 09:05 15:38 07:36 Sodium 139 139 140 (137-145) mmol/L Potassium 4.5 3.7 3.9 (3.5-5.1) mmol/L Chloride 104 103 102 (98-107) mmol/L Carbon Dioxide 18 L 22 25 (22-30) mmol/L BUN 10 8 L 9 (9-20) mg/dL Creatinine 0.63 L 0.69 0.64 L (0.66-1.25) mg/dL Glucose 93 108 H 108 H (74-99) mg/dL Calcium 10.0 10.2 9.7 (8.4-10.2) mg/dL AST 51 (17-59) U/L ALT 64 H (4-49) U/L Alkaline Phosphatase 68 (38-126) U/L Total Protein 8.1 (6.3-8.2) g/dL Albumin 4.9 (3.5-5.0) g/dL Current Medications Generic Name Dose Route Start Last Admin Trade Name Freq PRN Reason Stop Dose Admin Acetaminophen 650 mg 06/24/24 14:48 Acetaminophen Tab 325 Mg Tab PO Q6HR PRN Mild Pain or Fever > 100.5 Amlodipine Besylate 5 mg 06/25/24 09:15 06/25/24 10:01 Amlodipine 5 Mg Tab PO 5 mg DAILY MARCO A Administration Metoprolol Tartrate 50 mg 06/26/24 09:00 Metoprolol Tartrate 50 Mg Tab PO DAILY MAROC A Metoprolol Tartrate 25 mg 06/25/24 21:00 Metoprolol Tartrate 25 Mg Tab PO HS MARCO A Naloxone HCl 0.2 mg 06/24/24 14:48 Naloxone 0.4 Mg/Ml 1 Ml Vial IV Q2M PRN Opioid Reversal 06/24/24 09:05 06/25/24 07:36
[2024-06-25 11:16] VITALS: BP 129/90; PULSE 92
--- NOTE | 2024-06-25 11:55 | CA ---
Transthoracic Echo Report Name: Addy Cano Age: 34 Gender: M : 1990 Exam Date: 06/25/2024 10:55 Exam Location: [facility] Ht (in): 67 Wt (lb): 193 Ordering Physician: Jewell Clarke MD Attending/Referring Phys: Bearing Grinder Alanis Quesada RDCS Procedure CPT: Indications: HTN Cardiac Hx: HTN Technical Quality: Good Contrast 1: Total Dose (mL): Contrast 2: Total Dose (mL): MEASUREMENTS (Male / Female) Normal Values 2D ECHO LV Diastolic Diameter PLAX 4.2 cm 4.2 - 5.9 / 3.9 - 5.3 cm LV Systolic Diameter PLAX 2.1 cm IVS Diastolic Thickness 1.3 cm 0.6 - 1.0 / 0.6 - 0.9 cm LVPW Diastolic Thickness 1.3 cm 0.6 - 1.0 / 0.6 - 0.9 cm LV Relative Wall Thickness 0.6 RV Internal Dim ED PLAX 2.4 cm LA Systolic Diameter LX 3.7 cm 3.0 - 4.0 / 2.7 - 3.8 cm LV Diastolic Volume MOD BP 79.7 cm??? 67 - 155 / 56 - 104 cm??? LV Systolic Volume MOD BP 25.2 cm??? 22 - 58 / 19 - 49 cm??? LV Ejection Fraction MOD BP 68.4 % >= 55 % LV Cardiac Index MOD BP 2433.8 cm???/min???m??? LV Diastolic Volume MOD 4C 71.2 cm??? LV Systolic Volume MOD 4C 20.8 cm??? LV Ejection Fraction MOD 4C 70.7 % LV Cardiac Index MOD 4C 2248.8 cm???/min???m??? LV Diastolic Length 4C 7.8 cm LV Systolic Length 4C 6.0 cm LV Diastolic Volume MOD 2C 89.0 cm??? LV Systolic Volume MOD 2C 29.2 cm??? LV Ejection Fraction MOD 2C 67.1 % LV Cardiac Index MOD 2C 2668.3 cm???/min???m??? LV Diastolic Length 2C 7.7 cm LV Systolic Length 2C 6.4 cm LA Volume 44.6 cm??? 18 - 58 / 22 - 52 cm??? LA Volume Index 21.6 cm???/m??? 16 - 28 cm???/m??? M-MODE Aortic Root Diameter MM 3.4 cm LA Systolic Diameter MM 3.6 cm LA Ao Ratio MM 1.0 AV Cusp Separation MM 2.3 cm DOPPLER MV Area PHT 3.9 cm??? Mitral E Point Velocity 73.6 cm/s Mitral A Point Velocity 66.4 cm/s Mitral E to A Ratio 1.1 MV Deceleration Time 196.6 ms FINDINGS Left Ventricle Left ventricular ejection fraction is estimated at 55-60 %. Mildly increased septal wall thickness. Normal left ventricular systolic function with no obvious regional wall motion abnormalities. Left ventricular cavity size normal. Right Ventricle Normal right ventricular size and function. Right ventricular systolic pressure within normal limits. Right Atrium Normal right atrial size. Left Atrium Normal left atrial size. Mitral Valve Structurally normal mitral valve. Trace mitral regurgitation. No mitral stenosis. Aortic Valve Trileaflet aortic valve. No aortic valve stenosis or regurgitation. Tricuspid Valve Structurally normal tricuspid valve. Trace tricuspid regurgitation. No tricuspid stenosis. Pulmonic Valve Structurally normal pulmonic valve. Trace pulmonic regurgitation. No pulmonic stenosis. Pericardium No pericardial or pleural effusion. Aorta Normal size aortic root and proximal ascending aorta. CONCLUSIONS Normal LV size and systolic function. There is mild concentric LVH noted. No significant abnormality on the Doppler exam. No pericardial effusion. Previewed by: Dr. Marleni Conteh MD (Electronically Signed) Final Date: 25 June 2024 11:54
--- NOTE | 2024-06-25 12:47 | P.DS ---
Providers Date of admission: 06/24/24 11:27 Attending physician: Jewell Clarke MD Consults: 06/24/24 14:48 Consult Physician Urgent Consulting Provider: Phoenix Richardson Consult Reason/Comments: chest pain/ HTN Do you want consulting provider notified?: Yes Primary care physician: Mk Tobias Delvis [facility] Course: Patient is a 34-year-old male with past medical history of Erbs palsy, hypertension not on medications, who presented to the ER for evaluation of chest pain that he describes as chest tightness. He has been having episodes like that in the past lasting seconds/minutes. He also has associated diaphoresis and redness of the neck. Started on amlodipine and metoprolol for better blood pressure control for which was able to be obtained. He had echocardiogram revealed LVEF of 55 to 60%. The patient had felt much better and was discharged home on . He will need to follow-up with cardiology outpatient Assessment: #) Hypertensive urgency, resolve. continue metoprolol tartrate 50 mg am and 25 mg qhs. continue amlodipine 5 mg daily. outpatient f/u with cardiology #) Tobacco use, recommend cessation Patient Condition at Discharge: Fair Plan - Discharge Summary New Discharge Prescriptions: New Metoprolol Tartrate [Lopressor] 25 mg PO HS 30 Days #30 tab Metoprolol Tartrate [Lopressor] 50 mg PO DAILY 30 Days #30 tab amLODIPine [Norvasc] 5 mg PO DAILY 30 Days #30 tab Discharge Medication List Metoprolol Tartrate [Lopressor] 25 mg PO HS 30 Days #30 tab 06/25/24 [Rx] Metoprolol Tartrate [Lopressor] 50 mg PO DAILY 30 Days #30 tab 06/25/24 [Rx] amLODIPine [Norvasc] 5 mg PO DAILY 30 Days #30 tab 06/25/24 [Rx] Follow up Appointment(s)/Referral(s): Mk Edmondson MD [Primary Care Provider] - 1-2 days Leander Ornelas MD [STAFF PHYSICIAN] - 3 Weeks Patient Instructions/Handouts: Chest Pain (ED), Hypertension (ED) Activity/Diet/Wound Care/Special Instructions: Follow-up with PCP in the next 1 to 2 days for reevaluation. Return to the ER for any new or worsening concerns. Discharge Disposition: HOME SELF-CARE
[2024-06-25] MEDS ORDERED: METOPROLOL TARTRATE 25 MG TAB PO SCH (21:00)
[2024-06-26] MEDS ORDERED: METOPROLOL TARTRATE 50 MG TAB PO SCH (09:00)
[2024-06-26] MEDS ORDERED: METOPROLOL SUCCINATE (ER) 50 MG TAB.ER.24H PO SCH (09:00)
== END 2024-06-25 13:02 | disposition home or self-care (01) ==
LOC: EC 08:43 → 6NMEDSUR 11:27
PROVIDERS: ADMIT Student in an Organized Health Care Education/Training Program; ATTEND Student in an Organized Health Care Education/Training Program
DX: I16.0 Hypertensive urgency (principal); I10 Essential (primary) hypertension; Z91.148 Patient's other noncompliance with medication regimen for other reason; F17.200 Nicotine dependence, unspecified, uncomplicated; Z79.899 Other long term (current) drug therapy; Z88.1 Allergy status to other antibiotic agents; Z82.49 Family history of ischemic heart disease and other diseases of the circulatory system
CPT/HCPCS: 96374; 99285; 36415; 93005; 93306; 83835; 85379; 84439; 80061; 80053; 80048 ×2; 84443; 82088; 84244; 83735; 84484; 85025; 85610; 85730; 81003; 80306; 83036; 71046; 71275; G0378 ×2; Q9967; J1920